=== PATIENT | male | born 2000 | race Hispanic/Latino ===

== ENCOUNTER 2021-07-23 04:58 | Emergency (ER) | payer OTHER ==
[2021-07-23] MEDS ORDERED: Ketorolac Tromethamine 30 MG/ML VIAL ONE ×2 (05:10→05:12)
[2021-07-23] MEDS ORDERED: Boostrix 0.5 ML (Tdap) VIAL ONE (05:10)
== END 2021-07-23 05:30 | disposition home or self-care (01) ==
LOC: ERS 04:58
DX: S42.032A Displaced fracture of lateral end of left clavicle, initial encounter for closed fracture (principal); V89.2XXA Person injured in unspecified motor-vehicle accident, traffic, initial encounter
CPT/HCPCS: 90715; 96372; J1885